=== PATIENT | female | born 1975 | race Caucasian/White ===

== ENCOUNTER 2023-04-21 16:33 | Outpatient (CLI) | payer OTHER, SELFPAY ==
--- NOTE | ~2023-04-21 | XR_ITS ---
EXAMINATION: XR skull <4V DATE: 04/21/2023 17:10 INDICATION: Assess for possible metallic foreign body for MRI clearance TECHNIQUE: PA and lateral views of the skull were obtained. COMPARISON: None. FINDINGS: There is a dental taoist at the posterior most right maxillary molar. No other radiopaque foreig n bodies identified. No fractures. Moderate osteoarthritis at a few of the upper cervical facet and u ncovertebral joints. IMPRESSION: 1. Single dental taoist. No other radiopaque foreign bodies. Reviewed, dictated and finalized at location A. [employer]
--- NOTE | ~2023-04-21 | MR_ITS ---
EXAMINATION: MR lumbar spine wo con DATE: 04/21/2023 17:33 INDICATION: Spondylosis without myelopathy or radiculopathy. TECHNIQUE: Magnetic resonance imaging (MRI) of the lumbar spine was performed without intravenous con trast. Sequences included sagittal T2-weighted FSE, sagittal T2-weighted FS FSE, sagittal T1-weighted FSE, and axial T2-weighted FSE. COMPARISON: None FINDINGS: There is 8 degrees levocurvature of lumbar spine. There is 3 mm retrolisthesis of L3 on L4. Vertebral body heights are normal. There is mildly decreased disc height at L2-L3 and L3-L4. The dis king spinal cord signal intensity is normal. The conus medullaris is at T12-L1. The following disc lev els are specifically discussed: L1-L2: The disc does not extend beyond the endplate margin. There is severe right and mild left facet joint osteoarthritis. There is no neural foraminal stenosis. There is no central canal stenosis. L2-L3: The disc is bulging and has an annular fissure. There is severe bilateral facet joint osteoart hritis. There is mild bilateral neural foraminal stenosis. There is mild central canal stenosis. L3-L4: The disc is bulging. There is moderate bilateral facet joint osteoarthritis. There is mild maddi ateral neural foraminal stenosis. There is mild central canal stenosis. L4-L5: The disc is bulging. There is severe bilateral facet joint osteoarthritis. There is mild bilat eral neural foraminal stenosis. There is no central canal stenosis. L5-S1: There is a left foraminal protrusion. There is severe bilateral facet joint osteoarthritis. Th ere is mild bilateral neural foraminal stenosis. There is no central canal stenosis. IMPRESSION: 1. Mild lumbar spondylosis. Reviewed, dictated and finalized at location E. [employer] IMPRESSION: 1. Mild lumbar spondylosis.
== END 2023-04-21 16:34 | disposition home or self-care (01) ==
LOC: ANHIMG 16:33
PROVIDERS: PCP Family Medicine; Visit Provider Physician Assistant
DX: M47.816 Spondylosis without myelopathy or radiculopathy, lumbar region (principal); M43.06 Spondylolysis, lumbar region; Z98.811 Dental restoration status
CPT/HCPCS: 70250; 72148